=== PATIENT | male | born 1950 | race Caucasian/White ===

== ENCOUNTER 2019-08-20 07:03 | Emergency (ER) | payer MEDICARE ==
[~2019-08-20] VITALS: Ht 185.4 cm; Wt 109.1 kg
[2019-08-20 07:48] LABS: BACTERIA,URINE 0 /HPF (0-FEW); BILIRUBIN,URINE NEG (NEG); CLARITY,URINE CLEAR; COLOR,URINE YELLOW; GLUCOSE,URINE NEG (NEG); NITRITE,URINE NEG (NEG); RBC,URINE OCC /HPF (0-2); SQUAMOUS EPITHELIAL CELL,UR OCC /LPF; UROBILINOGEN,URINE 0.2 mg/dL (0.2 mg/dL); WBC,URINE OCC /HPF (0-4)
[2019-08-20 07:59] VITALS: BP 156/86
--- NOTE | 2019-08-20 12:32 | PHYS DOC ---
Past History Past Medical History: Other Additional Past Medical Histor: bph, tachycardia Past Surgical History: Other Additional Past Surgical Histo: vein stripping on leg Alcohol Use: Occasionally Adult General Chief Complaint Chief Complaint: URINARY FREQUENCY HPI HPI Patient is a 69-year-old male who presents with urinary frequency and urgency for the past 24 hours. Patient has history of enlarged prostate. Denies flank pain, or abdominal pain, hematuria, dysuria. No other acute symptoms or complaints. [] Review of Systems Review of Systems Review of symptoms as per HPI. All other review of symptoms are negative All other systems were reviewed and found to be within normal limits, except as documented in this note. Allergies Allergies Allergies Coded Allergies Type Severity Reaction Last Updated Verified No Known Drug Allergies 08/20/19 No Physical Exam Physical Exam Constitutional: Well developed, well nourished, no acute distress, non-toxic appearance. [] HENT: Normocephalic, atraumatic, bilateral external ears normal, oropharynx moist, no oral exudates, nose normal. [] Eyes: PERRLA, EOMI, conjunctiva normal, no discharge. [] [] Cardiovascular:Heart rate regular rhythm, no murmur [] Lungs & Thorax: Bilateral breath sounds clear to auscultation [] Abdomen: Bowel sounds normal, soft, no tenderness. [] Back: No tenderness, no CVA tenderness. [] Extremities: No tenderness, no cyanosis, no clubbing, ROM intact, no edema. [] Neurologic: Alert and oriented X 3, normal motor function, normal sensory function, no focal deficits noted. [] Psychologic: Affect normal, judgement normal, mood normal. [] Current Patient Data Vital Signs Vital Signs Date Time Temp Pulse Resp B/P (MAP) Pulse Ox O2 Delivery O2 Flow Rate FiO2 08/20/19 07:59 98 18 156/86 (109) 96 Room Air 08/20/19 07:07 97.5 Lab Results Laboratory Tests Test 08/20/19 07:11 Urine Collection Type Unknown Urine Color Yellow Urine Clarity Clear Urine pH 5.5 Urine Specific [place] 1.015 Urine Protein Neg (NEG-TRACE) Urine Glucose (UA) Neg mg/dL (NEG) Urine Ketones (Stick) Neg mg/dL (NEG) Urine Blood Neg (NEG) Urine Nitrite Neg (NEG) Urine Bilirubin Neg (NEG) Urine Urobilinogen Dipstick 0.2 mg/dL (0.2 mg/dL) Urine Leukocyte Esterase Neg (NEG) Urine RBC Occ /HPF (0-2) Urine WBC Occ /HPF (0-4) Urine Squamous Epithelial Cells Occ /LPF Urine Bacteria 0 /HPF (0-FEW) Urine Mucus Slight /LPF EKG EKG [] Radiology/Procedures Radiology/Procedures [] Course & Med Decision Making Course & Med Decision Making Pertinent Labs and Imaging studies reviewed. (See chart for details) [Greater than 800 mL's of urine present on bladder scan. Bladder drained with straight cath. Patient declines Shen catheter. He is instructed to increase prostate medication follow-up with his urologist ALENA. Return precautions reviewed.] Dragon Disclaimer Dragon Disclaimer This electronic medical record was generated, in whole or in part, using a voice recognition dictation system. Departure Departure: Impression: Primary Impression: Urinary retention Disposition: 01 HOME/RESIDENCE PRIOR TO ADM Condition: STABLE Patient Instructions: Urinary Retention, Acute, Male, [id number] Additional Instructions: Please increase your prostate medication to 1 pills twice daily and follow up with local urolgoist or [facility]. MICHELLE QUEEN DO Aug 20, 2019 12:32
== END 2019-08-20 08:00 | disposition home or self-care (01) ==
LOC: ER 07:03
DX: R33.9 Retention of urine, unspecified (principal)
CPT/HCPCS: 51701; 81001; 99284